=== PATIENT | male | born 1970 | race Caucasian/White ===

== ENCOUNTER 2019-12-17 21:57 | Inpatient (IN) | payer MEDICAID, OTHER ==
[~2019-12-17] VITALS: Ht 170.2 cm; Wt 59.0 kg
[~2019-12-17 21:57] MED LIST: AMLODIPINE PO; ASPIRIN PO; DIOVAN PO; HYDRALAZINE PO; LABETALOL PO; LOSARTAN PO; MINOXIDIL PO; OMEPRAZOLE PO; RAMIPRIL PO; RENAGEL PO
[2019-12-17] MEDS ORDERED: ASPIRIN 81MG TABLET PO ONE (22:30)
[2019-12-17] MEDS ORDERED: NITROGLYCERIN OINT 1GM/INCH UDPKT TD ONE (22:30)
[2019-12-17 23:38] LABS: BASOPHILS % 0.9 % (0.0-2.0); EOSINOPHILS % 8.4 % (0.0-5.0); HEMATOCRIT. 28.7 % (42.0-52.0); HEMOGLOBIN. 9.8 g/dL (14.0-18.0); LYMPHOCYTES % 20.5 % (20.0-50.0); MEAN CORPUSCULAR HEMOGLOBIN 29.5 pg (28.0-32.0); MEAN CORPUSCULAR VOLUME 86.3 fL (80.0-94.0); MONOCYTES % 8.7 % (2.0-8.0); NEUTROPHILS % 61.5 % (40.0-76.0); PLATELET 181 x1000/uL (130-400); RED BLOOD CELL COUNT 3.32 mill/uL (4.7-6.1); RED CELL DISTRIBUTION WIDTH 15.4 % (11.6-14.6)
[2019-12-17 23:42] LABS: CHLORIDE 99 mEq/L (98-107)
[2019-12-18] MEDS ORDERED: ACETAMINOPHEN WITH CODEINE 300/30MG TABLET PO ONE (00:45)
[2019-12-18 04:04] VITALS: BP 159/89
[2019-12-18] MEDS: OMEPRAZOLE 20MG CAPSULE EXTENDED RELEASE PO SCH (06:49)
[2019-12-18] MEDS: HYDRALAZINE HCL 50MG TABLET PO SCH ×3 (06:49→18:38)
[2019-12-18] MEDS: LOSARTAN POTASSIUM 50 MG TABLET PO SCH ×2 (06:49→18:38)
[2019-12-18 08:00] VITALS: BP 169/94
[2019-12-18 08:36] LABS: BASOPHILS % 0.9 % (0.0-2.0); EOSINOPHILS % 9.5 % (0.0-5.0); HEMATOCRIT. 27.8 % (42.0-52.0); HEMOGLOBIN. 9.4 g/dL (14.0-18.0); LYMPHOCYTES % 23.9 % (20.0-50.0); MEAN CORPUSCULAR HEMOGLOBIN 29.6 pg (28.0-32.0); MEAN CORPUSCULAR VOLUME 87.5 fL (80.0-94.0); MEAN PLATELET VOLUME 7.1 fl (7.4-10.4); MONOCYTES % 8.3 % (2.0-8.0); NEUTROPHILS % 57.4 % (40.0-76.0); PLATELET 162 x1000/uL (130-400); RED BLOOD CELL COUNT 3.18 mill/uL (4.7-6.1); RED CELL DISTRIBUTION WIDTH 15.6 % (11.6-14.6)
[2019-12-18 08:44] LABS: PHOSPHORUS 4.4 mg/dL (2.5-4.9)
[2019-12-18] MEDS: MINOXIDIL 2.5MG TABLET PO SCH (08:53)
[2019-12-18] MEDS: ASPIRIN 325MG EC TABLET PO SCH (08:54)
[2019-12-18] MEDS: AMLODIPINE 10MG TABLET PO SCH (08:54)
[2019-12-18] MEDS: SEVELAMER CARBONATE 800 MG TABLET PO SCH ×3 (08:54→18:38)
[2019-12-18] MEDS: CALCIUM ACETATE 667MG CAPSULE PO SCH ×3 (08:55→18:37)
[2019-12-18] MEDS: FOLIC ACID/VITAMIN B COMP W-C TABLET PO SCH (08:55)
[2019-12-18] MEDS: LABETALOL HCL 200MG TABLET PO SCH ×2 (08:55→21:17)
[2019-12-18] MEDS: METHADONE HCL 5MG TABLET PO PRN ×2 (11:47→21:19)
[2019-12-18 12:00] VITALS: BP 161/92
[2019-12-18] MEDS: SILDENAFIL CITRATE 20MG TABLET PO SCH ×2 (13:29→21:17)
[2019-12-18] MEDS ORDERED: CLONIDINE 0.1MG TABLET PO PRN (14:15)
[2019-12-18] MEDS: ONDANSETRON HCL 4MG/2ML INJ IV PRN (14:19)
[2019-12-18 16:00] VITALS: BP 119/66
[2019-12-18 20:00] VITALS: BP 135/70
[2019-12-19] VITALS: BP 108/64
[2019-12-19 04:57] VITALS: BP_SYST 132; BP_SYST 164; BP_DIAS 63; BP_DIAS 71
[2019-12-19] MEDS: LOSARTAN POTASSIUM 50 MG TABLET PO SCH ×2 (06:27→18:00)
[2019-12-19] MEDS: HYDRALAZINE HCL 50MG TABLET PO SCH ×4 (06:27→18:00)
[2019-12-19] MEDS: SILDENAFIL CITRATE 20MG TABLET PO SCH ×4 (06:27→22:08)
[2019-12-19] MEDS: OMEPRAZOLE 20MG CAPSULE EXTENDED RELEASE PO SCH (06:29)
[2019-12-19 06:44] LABS: BASOPHILS % 0.7 % (0.0-2.0); EOSINOPHILS % 10.3 % (0.0-5.0); HEMATOCRIT. 27.6 % (42.0-52.0); HEMOGLOBIN. 9.4 g/dL (14.0-18.0); LYMPHOCYTES % 24.1 % (20.0-50.0); MEAN CORPUSCULAR HEMOGLOBIN 29.9 pg (28.0-32.0); MEAN CORPUSCULAR VOLUME 87.3 fL (80.0-94.0); MEAN PLATELET VOLUME 7.4 fl (7.4-10.4); MONOCYTES % 6.9 % (2.0-8.0); PLATELET 152 x1000/uL (130-400); RED BLOOD CELL COUNT 3.16 mill/uL (4.7-6.1); RED CELL DISTRIBUTION WIDTH 15.6 % (11.6-14.6)
[2019-12-19] MEDS ORDERED: CALCIUM ACETATE 667MG CAPSULE PO SCH (07:30)
[2019-12-19 08:00] VITALS: BP 133/72
[2019-12-19] MEDS: CALCIUM ACETATE 667MG CAPSULE PO SCH ×4 (08:20→20:23)
[2019-12-19] MEDS ORDERED: BUPIVACAINE HCL/EPINEPHRINE/PF 0.5%/0.0005 10ML ONE (08:49)
[2019-12-19] MEDS: SEVELAMER CARBONATE 800 MG TABLET PO SCH ×3 (08:57→17:50)
[2019-12-19] MEDS: MINOXIDIL 2.5MG TABLET PO SCH (08:58)
[2019-12-19] MEDS: FOLIC ACID/VITAMIN B COMP W-C TABLET PO SCH (08:58)
[2019-12-19] MEDS: LABETALOL HCL 200MG TABLET PO SCH ×2 (08:58→20:22)
[2019-12-19] MEDS: AMLODIPINE 10MG TABLET PO SCH (08:58)
[2019-12-19] MEDS: ASPIRIN 325MG EC TABLET PO SCH (08:58)
[2019-12-19 09:06] LABS: IMMUNOGLOBULIN A 247 mg/dL (90-386); IMMUNOGLOBULIN G 1207 mg/dL (603-1613); IMMUNOGLOBULIN M 97 mg/dL (20-172)
[2019-12-19] MEDS ORDERED: MIDAZOLAM HCL 2 MG/2 ML VIAL ONE (09:27)
[2019-12-19] MEDS ORDERED: FENTANYL CITRATE/PF 50MCG/ML 2ML VIAL ONE (09:27)
[2019-12-19] MEDS ORDERED: LIDOCAINE HCL/PF 1% 10 MG/ML 5ML VIAL ONE (09:29)
[2019-12-19] MEDS ORDERED: PROPOFOL 200MG/20ML VIAL IV ONE (09:29)
[2019-12-19] MEDS ORDERED: SUCCINYLCHOLINE CHLORIDE 200MG/10ML IV ONE (09:30)
[2019-12-19] MEDS ORDERED: CEFAZOLIN SODIUM 1000MG/VIAL ONE ×2 (09:31→10:05)
[2019-12-19] MEDS ORDERED: SODIUM CHLORIDE 0.9% 10ML VIAL ONE ×5 (09:31→10:59)
[2019-12-19] MEDS ORDERED: PHENYLEPHRINE HCL 10 MG/ML 1ML (IV VIAL) IV ONE (09:33)
[2019-12-19] MEDS ORDERED: BACITRACIN 15GM TUBE TOP ONE (09:35)
[2019-12-19] MEDS ORDERED: BACITRACIN 50,000 UNITS/VIAL ONE (09:35)
[2019-12-19] MEDS ORDERED: EPHEDRINE SULFATE 50MG/ML VIAL ONE ×2 (09:48→10:27)
[2019-12-19] MEDS ORDERED: ESMOLOL HCL 10MG/ML 10ML VIAL IV ONE (09:50)
[2019-12-19] MEDS ORDERED: DEXAMETHASONE 4MG/ML 1ML VIAL ONE (10:06)
[2019-12-19] MEDS ORDERED: ONDANSETRON HCL 4MG/2ML INJ ONE (10:07)
[2019-12-19] MEDS ORDERED: SKIN ADHESIVE 0.7 GM EA TOP ONE (10:54)
[2019-12-19] MEDS ORDERED: CALCIUM CHLORIDE 1GM/10ML SYR IV ONE (10:57)
[2019-12-19] MEDS ORDERED: HYDRALAZINE 20MG/ML VIAL ONE (10:59)
[2019-12-19] MEDS ORDERED: HYDROMORPHONE HCL/PF 2MG/ML CPJ IV PRN (12:45)
[2019-12-19] MEDS ORDERED: ONDANSETRON HCL 4MG/2ML INJ IV PRN (13:00)
[2019-12-19 13:30] VITALS: BP 152/93
[2019-12-19] MEDS: ONDANSETRON HCL 4MG/2ML INJ IV PRN ×2 (14:23→21:54)
[2019-12-19] MEDS ORDERED: CALCIUM GLUCONATE 100MG/ML 10ML VIAL IV ONE (16:30)
[2019-12-19] MEDS ORDERED: CALCIUM CHLORIDE 1,000 MG in DEXT 5% WATER 90 ML IV NR (16:30)
[2019-12-19 16:49] VITALS: BP 128/66
[2019-12-19] MEDS: CALCITRIOL 0.25MCG CAPSULE PO SCH (17:00)
[2019-12-19 17:06] LABS: A/G RATIO 1.1 (0.7-1.7); ALBUMIN 3.3 g/dL (2.9-4.4); ALPHA-1-GLOBULIN 0.3 g/dL (0.0-0.4); ALPHA-2-GLOBULIN 0.7 g/dL (0.4-1.0); BETA GLOBULIN 0.9 g/dL (0.7-1.3); GAMMA GLOBULINS 1.1 g/dL (0.4-1.8); GLOBULIN TOTAL 2.9 g/dL (2.2-3.9); M-SPIKE Not Observed g/dL (Not Observed); TOTAL PROTEIN SERUM 6.2 g/dL (6.0-8.5)
[2019-12-19 20:00] VITALS: BP 141/79
[2019-12-19] MEDS ORDERED: HYDROCODONE/ACETAMINOPHEN 5/325MG TABLET PO PRN (20:00)
[2019-12-19] MEDS: HYDROCODONE/ACETAMINOPHEN 5/325MG TABLET PO PRN (20:19)
[2019-12-19] MEDS ORDERED: EPOETIN ALFA 10000UNITS/ML VIAL SUBCUT SCH (21:00)
[2019-12-20] MEDS: HYDROMORPHONE HCL/PF 2MG/ML CPJ IV PRN ×2 (00:08→03:39)
[2019-12-20 00:33] VITALS: BP 123/64
[2019-12-20 03:48] VITALS: BP 131/66
[2019-12-20] MEDS: LOSARTAN POTASSIUM 50 MG TABLET PO SCH ×2 (06:00→17:20)
[2019-12-20] MEDS: SILDENAFIL CITRATE 20MG TABLET PO SCH ×3 (06:00→21:55)
[2019-12-20] MEDS: HYDRALAZINE HCL 50MG TABLET PO SCH ×2 (06:00)
[2019-12-20 06:37] LABS: BASOPHILS % 0.4 % (0.0-2.0); EOSINOPHILS % 0.5 % (0.0-5.0); HEMATOCRIT. 26.2 % (42.0-52.0); HEMOGLOBIN. 8.9 g/dL (14.0-18.0); LYMPHOCYTES % 12.2 % (20.0-50.0); MEAN CORPUSCULAR HEMOGLOBIN 29.5 pg (28.0-32.0); MEAN CORPUSCULAR VOLUME 87.3 fL (80.0-94.0); MEAN PLATELET VOLUME 7.6 fl (7.4-10.4); MONOCYTES % 11.6 % (2.0-8.0); NEUTROPHILS % 75.3 % (40.0-76.0); PLATELET 195 x1000/uL (130-400); RED BLOOD CELL COUNT 3.01 mill/uL (4.7-6.1); RED CELL DISTRIBUTION WIDTH 16.1 % (11.6-14.6)
[2019-12-20 08:00] VITALS: BP 112/55
[2019-12-20] MEDS: CALCIUM ACETATE 667MG CAPSULE PO SCH ×4 (08:23→21:00)
[2019-12-20] MEDS: ASPIRIN 325MG EC TABLET PO SCH (08:24)
[2019-12-20] MEDS: SEVELAMER CARBONATE 800 MG TABLET PO SCH ×3 (08:24→17:21)
[2019-12-20] MEDS: OMEPRAZOLE 20MG CAPSULE EXTENDED RELEASE PO SCH (08:24)
[2019-12-20] MEDS: MINOXIDIL 2.5MG TABLET PO SCH (08:25)
[2019-12-20] MEDS: FOLIC ACID/VITAMIN B COMP W-C TABLET PO SCH (08:25)
[2019-12-20] MEDS: LABETALOL HCL 200MG TABLET PO SCH ×2 (08:26→21:00)
[2019-12-20] MEDS: AMLODIPINE 10MG TABLET PO SCH (08:26)
[2019-12-20] MEDS ORDERED: CALCIUM GLUCONATE 1,000 MG in DEXT 5% WATER 90 ML IV SCH (10:00)
[2019-12-20] MEDS: METHADONE HCL 5MG TABLET PO PRN (11:08)
[2019-12-20 12:00] VITALS: BP 139/71
[2019-12-20] MEDS: HYDROCODONE/ACETAMINOPHEN 5/325MG TABLET PO PRN ×3 (13:26→21:47)
[2019-12-20 16:00] VITALS: BP 131/66
[2019-12-20] MEDS: CALCITRIOL 0.25MCG CAPSULE PO SCH (17:20)
[2019-12-20 20:14] VITALS: BP 120/65
[2019-12-21 00:31] VITALS: BP 126/75
[2019-12-21] MEDS: HYDROCODONE/ACETAMINOPHEN 5/325MG TABLET PO PRN (02:14)
[2019-12-21 04:31] VITALS: BP 119/59
[2019-12-21] MEDS: LOSARTAN POTASSIUM 50 MG TABLET PO SCH (06:00)
[2019-12-21] MEDS: SILDENAFIL CITRATE 20MG TABLET PO SCH (06:00)
[2019-12-21] MEDS: OMEPRAZOLE 20MG CAPSULE EXTENDED RELEASE PO SCH (06:22)
[2019-12-21] MEDS: SEVELAMER CARBONATE 800 MG TABLET PO SCH (07:50)
[2019-12-21 08:00] VITALS: BP 149/84
[2019-12-21] MEDS ORDERED: CALCIUM CHLORIDE 1GM/10ML SYR IV ONE (08:00)
[2019-12-21] MEDS: FOLIC ACID/VITAMIN B COMP W-C TABLET PO SCH (09:00)
[2019-12-21] MEDS: LABETALOL HCL 200MG TABLET PO SCH (09:57)
[2019-12-21] MEDS: ASPIRIN 325MG EC TABLET PO SCH (09:58)
[2019-12-21] MEDS: MINOXIDIL 2.5MG TABLET PO SCH (09:58)
[2019-12-21] MEDS: CALCIUM ACETATE 667MG CAPSULE PO SCH (09:58)
[2019-12-21] MEDS: AMLODIPINE 10MG TABLET PO SCH (09:58)
[2019-12-21] MEDS: METHADONE HCL 5MG TABLET PO PRN (10:23)
[2019-12-21] MEDS ORDERED: HYDR-4009 MT (11:14)
[2019-12-21 11:59] VITALS: BP 150/81
[2019-12-21 12:00] VITALS: BP 150/81
== END 2019-12-21 12:30 | disposition home or self-care (01) | DRG 447 ==
LOC: ER 21:57 → 6WST 12-18 00:51 → EDBEDREQ 12-18 00:54 → EDBEDREQTM 12-18 00:54 → EDBEDREQDT 12-18 00:54 → ENRESERV 12-18 02:25
PROVIDERS: ADMIT Internal Medicine; ATTEND Internal Medicine
PROC: 0GB Endocrine System, Excision (ICD-10-PCS; principal; 2019-12-19)
PROC: 0GBL0ZZ Excision of Right Superior Parathyroid Gland, Open Approach (ICD-10-PCS; 2019-12-19)
PROC: 0GTP0ZZ Resection of Left Inferior Parathyroid Gland, Open Approach (ICD-10-PCS; 2019-12-19)
PROC: 0GTM0ZZ Resection of Left Superior Parathyroid Gland, Open Approach (ICD-10-PCS; 2019-12-19)
PROC: 0GTN0ZZ Resection of Right Inferior Parathyroid Gland, Open Approach (ICD-10-PCS; 2019-12-19)
DX: N25.81 Secondary hyperparathyroidism of renal origin (principal); I13.2 Hypertensive heart and chronic kidney disease with heart failure and with stage 5 chronic kidney disease, or end stage renal disease; E43 Unspecified severe protein-calorie malnutrition; T86.12 Kidney transplant failure; D89.2 Hypergammaglobulinemia, unspecified; I24.8 Other forms of acute ischemic heart disease; E11.65 Type 2 diabetes mellitus with hyperglycemia; E11.22 Type 2 diabetes mellitus with diabetic chronic kidney disease; I27.21 Secondary pulmonary arterial hypertension; N18.6 End stage renal disease; D63.8 Anemia in other chronic diseases classified elsewhere; E87.5 Hyperkalemia; R07.89 Other chest pain; Y83.8 Other surgical procedures as the cause of abnormal reaction of the patient, or of later complication, without mention of misadventure at the time of the procedure; M19.90 Unspecified osteoarthritis, unspecified site; I50.9 Heart failure, unspecified; Z82.49 Family history of ischemic heart disease and other diseases of the circulatory system; Z79.899 Other long term (current) drug therapy; Z99.2 Dependence on renal dialysis; Z79.82 Long term (current) use of aspirin
CPT/HCPCS: 36415; 71045; 78070; 80048; 80053; 82040; 82784; 83036; 83880; 83970; 84100; 84155; 84165; 84484; 85025; 86334; 88305; 88331; 93005; 93306; 99285; A9500; J0171; J0330; J0360; J0610; J0690; J0885; J1100; J1170; J2250; J2370; J2405; J2704; J3010; J3490; J7060

== ENCOUNTER 2020-01-08 09:44 | Emergency (ER) | payer MEDICAID ==
[~2020-01-08] VITALS: Ht 172.7 cm; Wt 66.0 kg
[~2020-01-08 09:44] MED LIST changes: +HYDR-4009 MT
[2020-01-08] MEDS ORDERED: ACETAMINOPHEN 325MG TABLET PO ONE (10:30)
[2020-01-08 14:10] VITALS: BP 144/82
== END 2020-01-08 14:19 | disposition home or self-care (01) ==
LOC: ER 09:44
DX: M54.6 Pain in thoracic spine (principal); J44.9 Chronic obstructive pulmonary disease, unspecified; Z20.828 Contact with and (suspected) exposure to other viral communicable diseases; Z99.2 Dependence on renal dialysis; E83.52 Hypercalcemia; Z98.890 Other specified postprocedural states; Z79.899 Other long term (current) drug therapy
CPT/HCPCS: 71045; 71100; 93005; 99285; C9803; U0003

== ENCOUNTER 2020-03-14 12:35 | Emergency (ER) | payer MEDICAID ==
[~2020-03-14] VITALS: Ht 172.7 cm; Wt 58.2 kg
[2020-03-14 12:38] VITALS: BP 129/70
[2020-03-14] MEDS ORDERED: ACETAMINOPHEN 325MG TABLET PO STA (13:24)
== END 2020-03-14 14:00 | disposition left against medical advice (07) ==
LOC: ER 12:35 → CANBEDREQ 16:47
DX: R50.9 Fever, unspecified (principal); R05 Cough; Z79.899 Other long term (current) drug therapy
CPT/HCPCS: 99281